=== PATIENT | female | born 1985 | race Caucasian/White ===

== ENCOUNTER 2018-02-24 18:20 | Emergency (ER) | payer MEDICAID ==
[~2018-02-24] VITALS: Ht 170.2 cm; Wt 62.1 kg
[2018-02-24 19:10] VITALS: BP 125/71
[2018-02-24] MEDS ORDERED: BENADRYL25 MG ORAL (19:16)
[2018-02-24] MEDS ORDERED: CORTIZONE-1028 G1 TP (19:16)
[2018-02-24] MEDS ORDERED: PREDNISONE20 MG ORAL (19:16)
[2018-02-24 19:25] VITALS: BP 125/71
--- NOTE | 2018-02-24 19:58 | Emergency Room Report ---
History of Present Illness General Chief Complaint: Skin Rash/Abscess Source: Patient Present Illness HPI The patient is a 32-year-old female presenting for possible allergic reaction. She states that she used her friend's topical clindamycin yesterday and awoke this morning with a bright red rash on her face. She admits to intense itching of these areas. she denies having a rash in any other area other than her face. She denies any pain. She used Benadryl which seemed to help. She denies having any previous allergic reactions. She denies any other symptoms including N, V, F, chills, headache, blurred vision Allergies: Coded Allergies: No Known Allergies (Unverified , 02/24/18) Patient History Past Medical History: see triage record Pertinent Family History: none Reviewed Nursing Documentation: PMH: Agreed; PSxH: Agreed Nursing Documentation-PMH Past Medical History: No Stated History Review of Systems All Other Systems: negative except mentioned in HPI Physical Exam Vital Signs Date Time Temp Pulse Resp B/P (MAP) Pulse Ox O2 Delivery O2 Flow Rate FiO2 02/24/18 18:29 98.2 88 16 125/71 99 Room Air Sp02 EP Interpretation: reviewed, normal General Appearance: no apparent distress, alert, GCS 15, non-toxic Head: normocephalic, atraumatic Eyes: bilateral eye normal inspection, bilateral eye PERRL ENT: hearing grossly normal, normal pharynx, no angioedema, normal voice Neck: full range of motion, supple/symm/no masses Respiratory: chest non-tender, lungs clear, normal breath sounds, speaking full sentences Cardiovascular #1: regular rate, rhythm, no edema Neurologic: alert, oriented x3, responsive, motor strength/tone normal, sensory intact, speech normal Psychiatric: judgement/insight normal, memory normal, mood/affect normal, no suicidal/homicidal ideation Skin: rash - raised erythema to bilat cheeks. Non tender. Warm to the touch Lymphatic: no adenopathy Medical Decision Making PA Attestation Dr. Hassan is my supervising physician. Patient management was discussed with my supervising physician Diagnostic Impression: Primary Impression: Allergic reaction Qualified Codes: T78.40XA - Allergy, unspecified, initial encounter ER Course The patient is a 32-year-old female presenting for possible allergic reaction. DDx considered but not limited to: contact dermatitis, anaphylaxis, cellulitis, chemical burn, among others PE: NAD. Vitals are stable. raised erythema to bilat cheeks. Non tender. Warm to the touch The patient is given prescription for prednisone, Benadryl, and topical steroid which is to be used for a maximum of 5 days. She was warned regarding topical steroids and sun exposure. She is told to stop using the cream and F/U with PCP L[facility]SE[facility]. ER precautions given Last Vital Signs Date Time Temp Pulse Resp B/P (MAP) Pulse Ox O2 Delivery O2 Flow Rate FiO2 02/24/18 19:25 98.2 78 16 125/71 99 Room Air Status: improved Disposition: HOME, SELF-CARE Condition: Improved Scripts Hydrocortisone (CORTIZONE-10) 28 Gm Cream..g. 1 APPLIC TP BID for 5 Days, GM Prov: BERTHA UGALDE.A. 02/24/18 Diphenhydramine Hcl* (BENADRYL*) 25 Mg Capsule 25 MG ORAL Q6H PRN for Itching, #20 CAP Prov: BERTHA UGALDE.A. 02/24/18 Prednisone* (PREDNISONE*) 20 Mg Tablet 20 MG ORAL DAILY, #4 TAB 0 Refills Prov: BERTHA UGALDE.A. 02/24/18 Patient Instructions: Rash Additional Instructions: I discussed my findings with the patient. All questions and concerns have been answered. Treatment and medication compliance have been addressed. I advised the patient that they need to follow up with PMD in 3-5 days. Return to ED if symptoms worsen, new symptoms arise, or if needed for any reason. Patient verbalized understanding of discharge instructions. BERTHA UGALDE Feb 24, 2018 19:58
== END 2018-02-24 19:25 | disposition home or self-care (01) ==
LOC: EMR 19:04
DX: T78.40XA Allergy, unspecified, initial encounter (principal)
CPT/HCPCS: 99283; J7512